=== PATIENT | male | born 1990 | race Caucasian/White ===

== ENCOUNTER 2017-09-16 17:40 | Emergency (ER) | payer BC ==
[~2017-09-16] VITALS: Ht 175.3 cm; Wt 97.5 kg
[2017-09-16] MEDS ORDERED: TOPIRAMATE 100 MG (18:15)
[2017-09-16] MEDS ORDERED: BUPROPION 150 MG (18:15)
[2017-09-16] MEDS ORDERED: TRIHEXYPHENIDYL 5 MG (18:15)
[2017-09-16] MEDS ORDERED: PALI234D IM (18:15)
[2017-09-16] MEDS ORDERED: ALPRAZOLAM 1 MG (18:15)
--- NOTE | 2017-09-16 18:40 | NUR ---
PATIENT WAS SEEN BY DR VASQUEZ FOR "EYE PROBLEM". DC, RX AND FOLLOW UP INSTRUCTIONS GIVEN AND EXPLAINED TO PATIENT WHO STATES HE UNDERSTANDS ALL INSTRUCTIONS.
== END 2017-09-16 18:44 | disposition home or self-care (01) ==
LOC: ER 17:41
DX: H11.32 Conjunctival hemorrhage, left eye (principal); Z88.0 Allergy status to penicillin; Z79.899 Other long term (current) drug therapy
CPT/HCPCS: A4663